=== PATIENT | male | born 1975 | race Hispanic/Latino ===

== ENCOUNTER 2017-04-19 09:42 | Emergency (ER) | payer OTHER ==
[2017-04-19 10:16] LABS: Basophils % (Auto) 0.9 % (0.0-1.8); Eosinophils % (Auto) 0.5 % (0.0-4.3); Hematocrit 48.2 % (35.5-45.6); Hemoglobin 16.4 gm/dl (11.8-15.2); Mean Corpuscular HGB Conc 34 % (32-34); Mean Corpuscular Hemoglobin 31 pg (28-32); Mean Corpuscular Volume 92 fl (84-94); Platelet Count 278 K/mm3 (140-440); Red Blood Count 5.26 M/mm3 (3.65-5.03); Red Cell Distribution Width 14.5 % (13.2-15.2); White Blood Count 11.8 K/mm3 (4.5-11.0)
[2017-04-19 10:25] LABS: Anion Gap 16 mmol/L; BUN/Creatinine Ratio 6; Blood Urea Nitrogen 7 mg/dL (9-20); Calcium 9.3 mg/dL (8.4-10.2); Carbon Dioxide 29 mmol/L (22-30); Chloride 95.8 mmol/L (98-107); Glucose 150 mg/dL (75-100); Potassium 4.1 mmol/L (3.6-5.0); Sodium 137 mmol/L (137-145)
[2017-04-19 10:52] LABS: Bilirubin,Urine NEG (Negative); Blood,Urine NEG (Negative); Ketones,Urine NEG (Negative); Leukocyte Esterase,Urine NEG (Negative); Nitrite,Urine NEG (Negative); Protein,Urine <15 mg/dL mg/dL (Negative)
[2017-04-19] MEDS ORDERED: TYLENOL PO ONE (13:18)
[2017-04-19] MEDS ORDERED: TORADOL IV ONE (13:18)
[2017-04-19] MEDS ORDERED: NACL 0.9% 1000 ML 1,000 ML IV ONE (13:18)
--- NOTE | 2017-04-19 13:19 | Emergency Department Report ---
ED General Adult HPI - General Chief complaint: Upper Respiratory Infection Stated complaint: FLU SYMPTOMS Time Seen by Provider: 04/19/17 13:04 Source: patient Mode of arrival: Ambulatory Limitations: No Limitations - History of Present Illness Initial comments: This is a 41-year-old male who was previously unknown to this provider. He does not have a local primary care doctor and he denies chronic medical conditions. Presents to the ER with 2 complaints. His first complaint is cough and cold. Reports cough, cold, production, body aches intimately for the past 2 weeks. The symptoms are intermittent, did not radiate anywhere, and have no exacerbating or relieving factors. Denies headache, neck pain, chest pain, abdominal pain, shortness of breath, nausea, vomiting, urinary symptoms. Second complaint is "diarrhea." Reports 2 episodes of loose watery bowel movements over the past 24 hours. Reports color is green/brown. No recent antibiotic use, no recent travel, positive multiple sick contacts for upper respiratory tract symptoms. -: Gradual, week(s) Severity scale (0 -10): 0 Associated Symptoms: cough, malaise, weakness. denies: confusion, chest pain, diaphoresis, fever/chills, headaches, loss of appetite, rash, seizure, shortness of breath, syncope - Related Data Previous Rx's Medication Instructions Recorded Last Taken Type Acetaminophen [Tylenol Arthritis] 650 mg PO Q6HR PRN #30 tablet.er 04/19/17 Unknown Rx Albuterol Sulfate [Proair 90 mcg IH Q4HR PRN #2 aer.pow.ba 04/19/17 Unknown Rx Respiclick] Benzonatate [Tessalon Perles] 100 mg PO Q8HR PRN #30 capsule 04/19/17 Unknown Rx Fluticasone [Flonase] 1 spray NS QDAY #1 bottle 04/19/17 Unknown Rx Allergies Allergy/AdvReac Type Severity Reaction Status Date / Time ampicillin Allergy Hives Verified 04/19/17 09:51 Penicillins Allergy Hives Verified 04/19/17 09:51 ED Review of Systems ROS: Stated complaint: FLU SYMPTOMS Other details as noted in HPI ED Past Medical Hx - Past Medical History Previous Medical History?: No - Surgical History Past Surgical History?: No - Social History Smoking Status: Current Every Day Smoker Substance Use Type: None - Medications Home Medications: Home Medications Medication Instructions Recorded Confirmed Last Taken Type Acetaminophen [Tylenol Arthritis] 650 mg PO Q6HR PRN #30 tablet.er 04/19/17 Unknown Rx Albuterol Sulfate [Proair 90 mcg IH Q4HR PRN #2 aer.pow.ba 04/19/17 Unknown Rx Respiclick] Benzonatate [Tessalon Perles] 100 mg PO Q8HR PRN #30 capsule 04/19/17 Unknown Rx Fluticasone [Flonase] 1 spray NS QDAY #1 bottle 04/19/17 Unknown Rx ED Physical Exam - General Limitations: No Limitations General appearance: alert, in no apparent distress - Head Head exam: Present: atraumatic, normocephalic - Eye Eye exam: Present: normal appearance, PERRL, EOMI, other (visual acuity intact to finger counting, color perception, reading at a close distance). Absent: nystagmus - ENT ENT exam: Present: normal exam, normal orophraynx, mucous membranes moist, TM's normal bilaterally, normal external ear exam - Neck Neck exam: Present: normal inspection, full ROM - Respiratory Respiratory exam: Present: normal lung sounds bilaterally. Absent: respiratory distress - Cardiovascular Cardiovascular Exam: Present: normal rhythm, tachycardia, normal heart sounds. Absent: systolic murmur, diastolic murmur, rubs, gallop - GI/Abdominal GI/Abdominal exam: Present: soft, normal bowel sounds. Absent: distended, tenderness, guarding, rebound, rigid, pulsatile mass - Rectal Rectal exam: Present: deferred - Extremities Exam Extremities exam: Present: normal inspection, full ROM, normal capillary refill. Absent: tenderness, pedal edema, joint swelling, calf tenderness - Back Exam Back exam: Present: normal inspection, full ROM. Absent: tenderness, CVA tenderness (R), paraspinal tenderness, vertebral tenderness - Neurological Exam Neurological exam: Present: alert, oriented X3, CN II-XII intact, normal gait, other (Extraocular movements intact. Tongue midline. No facial droop. Facial sensation intact to light touch in the V1, V2, V3 distribution bilaterally. 5 and 5 strength in 4 extremities.. Sensation is intact to light touch in 4 extremities.). Absent: motor sensory deficit - Psychiatric Psychiatric exam: Present: normal affect, normal mood - Skin Skin exam: Present: warm, dry, intact, normal color. Absent: rash ED Course Vital Signs 04/19/17 04/19/17 04/19/17 09:45 12:39 12:40 Temperature 98.5 F 98.9 F Pulse Rate 95 H 103 H Respiratory 20 17 17 Rate Blood Pressure 145/92 Blood Pressure 152/88 [Left] O2 Sat by Pulse 95 98 98 Oximetry 04/19/17 14:43 Temperature 98.0 F Pulse Rate 87 Respiratory 14 Rate Blood Pressure Blood Pressure 119/66 [Left] O2 Sat by Pulse 93 Oximetry ED Medical Decision Making - Lab Data Result diagrams: 04/19/17 10:00 04/19/17 10:00 Vital Signs 04/19/17 04/19/17 04/19/17 09:45 12:39 12:40 Temperature 98.5 F 98.9 F Pulse Rate 95 H 103 H Respiratory 20 17 17 Rate Blood Pressure 145/92 Blood Pressure 152/88 [Left] O2 Sat by Pulse 95 98 98 Oximetry Labs 04/19/17 04/19/17 04/19/17 10:00 10:00 10:00 WBC 11.8 H RBC 5.26 H Hgb 16.4 H Hct 48.2 H MCV 92 MCH 31 MCHC 34 RDW 14.5 Plt Count 278 Lymph % (Auto) 28.2 [place] % (Auto) 9.1 H Eos % (Auto) 0.5 Baso % (Auto) 0.9 Lymph # 3.3 [place] # 1.1 H Eos # 0.1 Baso # 0.1 Seg Neutrophils % 61.3 Seg Neutrophils # 7.3 Sodium 137 Potassium 4.1 Chloride 95.8 L Carbon Dioxide 29 Anion Gap 16 BUN 7 L Creatinine 1.2 Estimated GFR > 60 BUN/Creatinine Ratio 6 Glucose 150 H Calcium 9.3 Total Creatine Kinase 143 Urine Color Urine Turbidity Urine pH Ur Specific [place] Urine Protein Urine Glucose (UA) Urine Ketones Urine Blood Urine Nitrite Urine Bilirubin Urine Urobilinogen Ur Leukocyte Esterase Urine WBC (Auto) Urine RBC (Auto) U Epithel Cells (Auto) 04/19/17 10:07 WBC RBC Hgb Hct MCV MCH MCHC RDW Plt Count Lymph % (Auto) [place] % (Auto) Eos % (Auto) Baso % (Auto) Lymph # [place] # Eos # Baso # Seg Neutrophils % Seg Neutrophils # Sodium Potassium Chloride Carbon Dioxide Anion Gap BUN Creatinine Estimated GFR BUN/Creatinine Ratio Glucose Calcium Total Creatine Kinase Urine Color Yellow Urine Turbidity Clear Urine pH 5.0 Ur Specific [place] 1.018 Urine Protein <15 mg/dl Urine Glucose (UA) >=500 Urine Ketones Neg Urine Blood Neg Urine Nitrite Neg Urine Bilirubin Neg Urine Urobilinogen 4.0 Ur Leukocyte Esterase Neg Urine WBC (Auto) 1.0 Urine RBC (Auto) 4.0 U Epithel Cells (Auto) < 1.0 - Radiology Data Radiology results: report reviewed, image reviewed X-ray of the chest is negative - Medical Decision Making Differential diagnoses, including but not limited to: Viral syndrome, diarrhea, pneumonia, influenza-like illness Assessment and plan: 41-year-old male with the complaint of cold and cough and flulike symptoms for the past 14 days. Symptoms have been present for over 72 hours therefore the patient is now Tamiflu candidate. The patient describes 2 episodes of watery loose bowel movements over the past 24 hours, this does not meet the criteria for diarrhea. No recent antibiotic use, no recent travel, no risk factors for C. difficile. Patient treated with IV fluids, Toradol and Tylenol, his tachycardia resolved, he is tolerating liquid feeds, and he reports that he feels much improved. He will be discharged at this time with general supportive care and he is suitable to follow up with outpatient primary care doctor, who does not appear to be an emergent condition at this time. Critical care attestation.: If time is entered above; I have spent that time in minutes in the direct care of this critically ill patient, excluding procedure time. ED Disposition Clinical Impression: URI (upper respiratory infection) Disposition: DC-01 TO HOME OR SELFCARE Is pt being admited?: No Does the pt Need Aspirin: No Condition: Stable Additional Instructions: Take the medicines as needed/directed. Follow up with her primary care doctor within the next month. Symptoms of cold/flu will likely wax and wane, this is a normal expected natural history. Follow up with a primary care doctor is recommended, return to the ER right away with new pain, worsened pain, migration of pain, fevers, chills, lethargy, irritability, projectile vomiting, change in mental status, confusion, inability to tolerate liquid feeds. Prescriptions: Acetaminophen [Tylenol Arthritis] 650 mg PO Q6HR PRN #30 tablet.er PRN Reason: Pain Albuterol Sulfate [Proair Respiclick] 90 mcg IH Q4HR PRN #2 aer.pow.ba PRN Reason: Wheezing Benzonatate [Tessalon Perles] 100 mg PO Q8HR PRN #30 capsule PRN Reason: Cough Fluticasone [Flonase] 1 spray NS QDAY #1 bottle Referrals: PRIMARY CARE, [Primary Care Provider] - 3-5 Days DC BISHOP MD [Staff Physician] - 3-5 Days [facility] [Provider Group] - 3-5 Days Forms: Work/School Release Form(ED)
--- NOTE | 2017-04-19 13:38 | XRay Report ---
Chest skull History: Cough with flu symptoms. Findings: Normal cardiomediastinal silhouette. Trachea is midline. No consolidation, pneumothorax or pleural effusion. Impression: No acute cardiopulmonary findings.
[2017-04-19 14:43] VITALS: BP 119/66
== END 2017-04-19 14:55 | disposition home or self-care (01) ==
LOC: ED 09:42
DX: J06.9 Acute upper respiratory infection, unspecified (principal); R53.1 Weakness; R19.7 Diarrhea, unspecified; F17.200 Nicotine dependence, unspecified, uncomplicated; Z88.0 Allergy status to penicillin; Z88.1 Allergy status to other antibiotic agents
CPT/HCPCS: 36415; 71020; 80048; 81001; 82550; 85025; 96361; 96374; 99284; J1885; J7030